=== PATIENT | female | born 1960 | race Caucasian/White ===

== ENCOUNTER → 2018-06-28 | Outpatient (CLI) | payer OTHER ==
[~2018-06-28] MED LIST: AZIT-1 PO; CALC-852 PO; CET10 PO; DOCU-416 PO; FLUO-177 PO; MOMR; MOMR INH; MOMR NS; OMEG-11 PO; OXYC-865 PO
--- NOTE | 2018-06-28 16:43 | RADIOLOGY IMAGING REPORT ---
FACILITY: [facility] PATIENT NAME: CHRIS RUIZ : [id number] MR: [id number] V: [id number] EXAM DATE: [id number] ORDERING PHYSICIAN: CHAYA CANALES TECHNOLOGIST: Elzbieta Noble PROCEDURE:BILATERAL DIGITAL SCREENING MAMMOGRAM WITH CAD ASSISTED INTERPRETATION & 3D TOMOSYNTHESIS COMPARISON:07/24/16, 07/22/15 VIEWS OBTAINED: Bilateral 2D full field CC & MLO & corresponding 3D tomography INDICATIONS:SCREENING/Asymptomatic TISSUE DENSITY: Predominantly fatty tissue FINDINGS: Right breast central asymmetry is seen on CC view only. Bilateral circumscribed breast masses are unchanged. DIAGNOSTIC CATEGORY 0--INCOMPLETE: NEED ADDITIONAL IMAGING EVALUATION. RECOMMENDATIONS: ADDITIONAL MAMMOGRAPHIC VIEWS REQUIRED: RIGHT BREAST. Right breast diagnostic mammogram (focal compression CC 2D & 3D, full field ML 2D & 3D ) ULTRASOUND: RIGHT BREAST. Right breast Ultrasound if indicated. IMPRESSION: BIRADS 0: Incomplete, need additional imaging. Dictated by: Molly Caruso M.D. on 06/28/2018 at 14:15 Transcribed by: SANCHEZ on 06/28/2018 at 14:54 Approved by: Molly Caruso M.D. on 06/28/2018 at 16:42 [facility]
== END ==
LOC: MAMO 04:26
PROVIDERS: ATTEND Internal Medicine
DX: R92.2 Inconclusive mammogram (principal)
CPT/HCPCS: 77063; 77067

== ENCOUNTER → 2018-07-11 | Outpatient (CLI) | payer OTHER ==
--- NOTE | 2018-07-12 08:29 | RADIOLOGY IMAGING REPORT ---
[place] [facility] [place]IENT NAME: CHRIS RUIZ : [id number] MR: [id number] V: [id number] EXAM DATE: ORDERING PHYSICIAN: CHAYA CANALES TECHNOLOGIST: Elzbieta Noble PROCEDURE:RIGHT DIGITAL DIAGNOSTIC MAMMOGRAM WITH CAD ASSISTED INTERPRETATION & 3D TOMOSYNTHESIS COMPARISON:Prior mammograms 06/28/18, 07/24/16, 07/22/15, 05/07/14, 05/06/13, 04/25/12. INDICATIONS:FURTHER EVAL FINDINGS: The patient returns for Spot compression view in the Right CC projection a rolled Right CC view and a mediolateral view of the Right breast. The focal asymmetry posterior to mid nipple line on the recent Right CC view appeared compressible and dissipated on the rolled view. There is no demonstration of malignant appearing mass or calcification of the Right breast. DIAGNOSTIC CATEGORY 2--BENIGN FINDING. RECOMMENDATIONS: ROUTINE MAMMOGRAM AND CLINICAL EVALUATION. IMPRESSION: BIRADS 2: Benign finding. No significant abnormality of the Right breast is seen. Dictated by: Sarita Veloz M.D. on 07/11/2018 at 15:49 Transcribed by: ANA on 07/12/2018 at 8:11 Approved by: Sarita Veloz M.D. on 07/12/2018 at 8:28 [facility]
== END ==
LOC: MAMO 01:23
PROVIDERS: ATTEND Internal Medicine
DX: R92.2 Inconclusive mammogram (principal)
CPT/HCPCS: 77061; 77065

== ENCOUNTER → 2018-11-20 | Outpatient (REF) | payer OTHER | LOC: ZZSENDIN 12:00 | PROVIDERS: ATTEND Orthopaedic Surgery | DX: M67.441 Ganglion, right hand (principal) | CPT/HCPCS: 88304 ==